=== PATIENT | female | born 1960 | race Caucasian/White ===

== ENCOUNTER 2022-02-01 13:53 | Emergency (ER) | payer OTHER | END 2022-02-01 15:01 | disposition home or self-care (01) | LOC: JP.ED 13:53 | DX: S61.432A Puncture wound without foreign body of left hand, initial encounter (principal); I10 Essential (primary) hypertension; Z88.0 Allergy status to penicillin; Z88.1 Allergy status to other antibiotic agents; Z79.899 Other long term (current) drug therapy; W45.8XXA Other foreign body or object entering through skin, initial encounter | CPT/HCPCS: 99283 ==